=== PATIENT | male | born 1955 | race Caucasian/White ===

== ENCOUNTER 2021-07-28 12:41 | Outpatient (CLI) | payer MEDICARE, BC | END 2021-07-28 12:42 | disposition home or self-care (01) | LOC: CSHMRI 12:41 | PROVIDERS: ATTEND Orthopaedic Surgery | DX: M54.12 Radiculopathy, cervical region (principal); M47.812 Spondylosis without myelopathy or radiculopathy, cervical region | CPT/HCPCS: 72141 ==